=== PATIENT | female | born 1965 ===

== ENCOUNTER → 2020-07-13 08:55 | Outpatient (BNVA) | payer OTHER, SELFPAY | PROVIDERS: Family Provider Family Medicine; Visit Provider Internal Medicine | DX: E11.49 Type 2 diabetes mellitus with other diabetic neurological complication (principal); I10 Essential (primary) hypertension | CPT/HCPCS: 99203 ==

== ENCOUNTER → 2020-08-13 14:59 | Outpatient (BNVA) | payer OTHER, SELFPAY | PROVIDERS: Family Provider Family Medicine; Visit Provider Internal Medicine | DX: E11.49 Type 2 diabetes mellitus with other diabetic neurological complication (principal); E66.9 Obesity, unspecified; E78.2 Mixed hyperlipidemia; E89.40 Asymptomatic postprocedural ovarian failure; I10 Essential (primary) hypertension | CPT/HCPCS: 99214 ==

== ENCOUNTER → 2021-08-29 16:09 | Outpatient (BNVA) | payer BC, SELFPAY | PROVIDERS: Family Provider Family Medicine; Visit Provider Nurse Practitioner Family | DX: Z20.822 Contact with and (suspected) exposure to COVID-19 (principal) | CPT/HCPCS: 87635 ==

== ENCOUNTER 2022-03-03 10:11 | Outpatient (CLI) | payer BC, SELFPAY ==
--- NOTE | 2022-03-03 10:40 | XRR_ITS ---
PROCEDURE INFORMATION: Exam: XR Left Toe(s) Exam date and time: 03/03/2022 10:52 AM Age: 56 years old Clinical indication: Condition or disease; Other: Type ii dm w/foot ulcer, attn: Left 3rd toe/3 views TECHNIQUE: Imaging protocol: XR Left toes. Views: Minimum 2 views. COMPARISON: No relevant prior studies available. FINDINGS: Bones/joints: Normal. Soft tissues: Normal. XR/XR toe LT min 2V [id number] IMPRESSION: No acute findings.
[2022-03-03 10:41] LABS: Basophils # 0.1 10^3/uL (0.0-0.1); Basophils % 0.7 %; Eosinophils # 0.2 10^3/uL (0.0-0.8); Eosinophils % 1.3 %; Hematocrit 41.3 % (37.0-47.0); Hemoglobin 13.5 g/dL (11.5-15.3); Lymphocytes # 3.8 10^3/uL (0.8-4.8); Lymphocytes % 32.6 %; Mean Corpuscular HGB Conc 32.7 g/dL (30.0-36.0); Mean Corpuscular Hemoglobin 27.7 pg (28.0-34.0); Mean Corpuscular Volume 84.6 fl (81-99); Mean Platelet Volume 9.8 fL (7.4-10.4); Monocytes # 0.6 10^3/uL (0.2-0.9); Monocytes % 4.9 %; Neutrophils # 6.81 10^3/uL (1.8-7.7); Neutrophils % 58.9 %; Nucleated Red Blood Cells % 0 %; Platelet Count 363 10^3/cmm (130-400); Red Blood Count 4.88 10^6/uL (4.1-5.3); Red Cell Distribution Width 11.6 % (12.1-15.1); White Blood Count 11.6 10^3/uL (4.0-10.0)
[2022-03-03 10:52] LABS: Erythrocyte Sedimentation Rate 16 mm/hr (0-15)
[2022-03-03 11:10] LABS: Anion Gap 20.4 (5-19); Blood Urea Nitrogen 11 mg/dL (6-20); C Reactive Protein 4.5 mg/L (0.0-4.9); Calcium 10.5 mg/dL (8.5-10.5); Carbon Dioxide 22 mmol/L (22-29); Chloride 95 mmol/L (98-107); Glomerular Filtration Rate 127.6 mL/min (90-130); Glucose 156 mg/dL (65-115); Osmolality Calculated 279 mOsm/kg (285-295); Potassium 4.4 mmol/L (3.5-5.1); Sodium 133 mmol/L (136-145)
== END 2022-03-03 10:12 | disposition home or self-care (01) ==
PROVIDERS: PCP Family Medicine; Visit Provider Thoracic Surgery (Cardiothoracic Vascular Surgery)
DX: E11.621 Type 2 diabetes mellitus with foot ulcer (principal)
CPT/HCPCS: 73660; 80048; 85025; 85651; 86140

== ENCOUNTER 2022-09-23 11:41 | Outpatient (CLI) | payer BC, SELFPAY ==
--- NOTE | 2022-09-23 11:46 | MM_ITS ---
WS: [id number] BILATERAL SCREENING DIGITAL TOMOSYNTHESIS MAMMOGRAM WITH CAD HISTORY: SCREENING COMPARISON: 11/18/2019 and 06/11/2018 Bilateral CC and MLO views with tomosynthesis and synthetic mammography submitted. Computer aided det ection analyzed. Breast composition: There are scattered areas of fibroglandular density. No suspicious masses, microc alcifications or architectural distortion. MM/[place] [id number] IMPRESSION: BI-RADS: 1-Negative FOLLOW UP: 1 Year Follow-up
== END 2022-09-23 11:42 | disposition home or self-care (01) ==
PROVIDERS: PCP Electrodiagnostic Medicine; Visit Provider Electrodiagnostic Medicine
DX: Z12.31 Encounter for screening mammogram for malignant neoplasm of breast (principal)
CPT/HCPCS: 77063; 77067

== ENCOUNTER 2025-07-03 16:12 | Outpatient (CLI) | payer BC, SELFPAY ==
--- NOTE | 2025-07-03 | MM_ITS ---
WS: [id number] BILATERAL 3D TOMOSYNTHESIS DIGITAL SCREENING MAMMOGRAPHY WITH CAD CLINICAL INFORMATION: ANNUAL SCREENING HISTORY: Screening mammogram. No current complaints. COMPARISON: 2021 TECHNIQUE: Bilateral CC and MLO views. FINDINGS: Scattered fibroglandular densities bilaterally. No suspicious focal mass, asymmetry, calcifications, or architectural distortion. No evidence of malignancy. Punctate calcifications RIGHT breast. MM/MM scr tomosynthesis [id number] IMPRESSION: DENSITY: There are scattered areas of fibroglandular density. BI-RADS: 2 - Benign. FOLLOW UP: 1 Year Follow-up Recommend return to annual screening mammography.
== END 2025-07-03 16:13 | disposition home or self-care (01) ==
LOC: RAD 16:13
PROVIDERS: PCP Electrodiagnostic Medicine; Visit Provider Electrodiagnostic Medicine
DX: Z12.31 Encounter for screening mammogram for malignant neoplasm of breast (principal); R92.323 Mammographic fibroglandular density, bilateral breasts; R92.1 Mammographic calcification found on diagnostic imaging of breast
CPT/HCPCS: 77063; 77067